=== PATIENT | female | born 1945 | race Caucasian/White ===

== ENCOUNTER 2017-05-23 22:29 | Emergency (ER) | payer OTHER, MEDICAID ==
[~2017-05-23] VITALS: Ht 165.1 cm; Wt 81.6 kg
[2017-05-24 00:36] LABS: Albumin 3.7 g/dL (3.4-5.0); BUN/Creatinine Ratio 19.7; Bilirubin, Total 0.8 mg/dL (0.2-1.0); Potassium 3.7 mmol/L (3.5-5.1); Total Protein 7.3 g/dL (6.4-8.2)
[2017-05-24] MEDS ORDERED: NALBUPHINE HCL 10 MG/1ml INJECTION IV ONE (01:00)
[2017-05-24 02:04] VITALS: BP 155/76
[2017-05-24] MEDS ORDERED: EZET10TA6 PO (02:06)
[2017-05-24] MEDS ORDERED: OLME20TA19 PO (02:11)
[2017-05-24] MEDS ORDERED: METO25TA5 PO (02:11)
[2017-05-24] MEDS ORDERED: CHOL200031 PO (02:11)
[2017-05-24] MEDS ORDERED: METF-370 PO (02:11)
[2017-05-24] MEDS ORDERED: ATOR40TA52 PO (02:11)
[2017-05-24] MEDS ORDERED: ASPI81TA27 PO (02:11)
== END 2017-05-24 02:30 | disposition home or self-care (01) ==
LOC: EDBD 22:29 → ER 22:37
DX: M54.42 Lumbago with sciatica, left side (principal); E11.9 Type 2 diabetes mellitus without complications; I10 Essential (primary) hypertension; E78.00 Pure hypercholesterolemia, unspecified
CPT/HCPCS: 36415; 72125; 72128; 72131; 80053; 96374; 99285; J2300